=== PATIENT | male | born 1975 | race Caucasian/White ===

== ENCOUNTER 2024-05-29 13:31 | Emergency (ER) | payer OTHER, SELFPAY ==
--- OUTSIDE RECORDS SUMMARY | 2024-05-29 13:33 | XMS_ITS | Clinical Summary ---
Author Organization [facility] tuul Address [facility] [place] [address] Care Team Providers Care Soot Blower Name Role Phone Benito Lainez DO Primary Care Provider [phone] Source Comments [facility] tuul,non-owned Affiliates and Associated Physician Practices is amultiple site organization consisting of ambulatory clinics and hospital sitesin [place], [place], [place] and [place]. This disclosure is being madepursuant to the Care Everywhere program and may not contain all information available regarding this patient. Last updated 17.[facility] tuul Allergies No known active allergies Medications * Be aware that medications may not be up to date on this document. Alwaysverify current medications with the patient. Medication Sig Dispensed Refills Start Date End Date Status atorvastatin (LIPITOR) 10 MG tablet Take 1 tablet by mouth at bedtime 04/23/2018 Active buPROPion XL 24hr (WELLBUTRIN-XL) 300 MG tablet 03/15/2018 Active gabapentin (NEURONTIN) 100 MG capsule 05/19/2018 Active HYDROcodone-acetamin ophen (NORCO) 5-325 MG tablet hydrocodone 5 mg-acetaminophen 325 mg tablet Active hydrOXYzine pamoate (VISTARIL) 50 MG capsule 05/24/2018 Active levothyroxine (SYNTHROID) 200 MCG tablet 05/19/2018 Active methylPREDNISolone (MEDROL DOSEPAK) 4 MG tablet 05/19/2018 Active traMADol (ULTRAM) 50 MG tablet tramadol 50 mg tablet Active Active Problems Problem Noted Date Diagnosed Date Chronic obstructive lung disease 06/09/2018 Creatinine elevation 06/09/2018 Family History Relation Name Status Comments Brother Alive Father Alive Mother Alive Sister Alive Social History Tobacco Use Types Packs/Day Years Used Date Smoking Tobacco: Every Day Cigarettes Smokeless Tobacco: Former Tobacco Cessation:Ready to Q uit: No; Counseling Given: Yes Alcohol Use Standard Drinks/Week Comments Yes 0 (1 standard drink = 0.6 oz pur e alcohol) OCCASIONAL Sex and Gender Information Value Date Recorded Sex Assigned at Not on file Gender Identity Not on file Sexual Orientation Not on file Last Filed Vital Signs Vital Sign Reading Time Taken Comments Blood Pressure 141/99 06/09/2018 2:30 PM CDT Pulse 94 06/09/2018 2:30 PM CDT Temperature 36.3 C (97.4 F) 06/09/2018 2:30 PM CDT Respiratory Rate 20 06/09/2018 2:30 PM CDT Oxygen Saturation 98% 06/09/2018 2:30 PM CDT Inhaled Oxygen Concentration - - Weight 107.3 kg (236 lb 9.6 oz) 06/09/2018 2:30 PM CDT Height 185.4 cm (6' 1 ) 06/09/2018 2:30 PM CDT Body Mass Index 31.22 06/09/2018 2:30 PM CDT Plan of Treatment Health Maintenance Due Date Last Done Comments COLOGUARD (AGES 45-75) - COL ON CA SCREENING 1973 COLON MONITORING 1973 COLONOSCOPY - COLON CA SCREENING 1973 CT COLONOGRAPHY - COLON CA SCREENING 1973 Colorectal Cancer Screening 1973 FIT - COLON CA SCREENING 1973 FLEX SIG - COLON CA SCREENING 1973 HIV SCREENING 1988 HEPATITIS C SCREENING 10/12/1991 DTAP/TDAP/TD VACCINES (1 - Tdap) 1992 HEPATITIS B VACCINE (1 of 3 - 19+ 3-dose series) 1992 PNEUMOCOCCAL VACCINE (1 of 2 - PCV) 1992 SCREENING FOR DIABETES 06/09/2018 PNEUMOCOCCAL VACCINE 50+ (1 of 1 - PCV) 10/17/2023 ZOSTER VACCINE (1 of 2) 10/17/2023 COVID-19 VACCINE (1 - 2023-2 5 season) 2023 INFLUENZA VACCINE (#1) 2023 DEPRESSION SCREENING 03/02/2024 HIB VACCINE Aged Out No longer eligi ble based on patient's age to complete this topic HPV VACCINE Aged Out No longer eligi ble based on patient's age to complete this topic MENINGOCOCCAL (Group B) VACC INE SHARED DECISION-MAKING Aged Out No longer eligibl e based on patient's age to complete this topic MENINGOCOCCAL GROUPS A/C/Y/W VACCINE Aged Out No longer eligible b ased on patient's age to complete this topic Care Teams Soot Blower Relationship Specialty Start Date End Date Benito Lainez DO [address] [facility] [place] [address] PCP - General Family Medicine 05/12/18
--- OUTSIDE RECORDS SUMMARY | 2024-05-29 13:33 | XMS_ITS | Data Portability ---
[facility] Organization [facility] Address [address] [place] [address] Care Team Providers Care Community Health Advocate Name Role Phone BJORN WATT Primary Care Provider [phone] Assessment No assessment recorded. Plan of Treatment Reminders Order Date Submit Date Provider Last Modified By Organization Details Last Modified Time Details Appointments None recorded. Lab CBC 2014 015 [email or web address] [facility], [address] [facility], [facility] [address], [place], [address], 5 13:26:16 CMP, serum or plasma 2014 015 [email or web address] [facility], [address], [address], [place], [address], 5 11:46:39 Referral physical therapist referral 2023 024 [facility], [address] [facility], [place], [address], 4 15:26:10 behaviora health referral 2016 017 [email or web address] Yves Sandy MD, [address] [place], [address], 7 08:51:36 urologist referral 2014 015 ATHENAFAX Not available 5 10:44:59 Procedures None recorded. Surgeries None recorded. Imaging ultrasoun d, kidney 2014 015 [email or web address] [facility] ([facility]), [address] [place], [address], 5 14:40:30 juliana leung kevinshanice er 2014 015 [facility] ([facility]), [address] [place], [address], 5 14:37:19 Medication Orders diclofena c sodium 75 mg tablet,de layed release 2023 [facility], [address] [place] [address] , [address], [place], [place], [id number], 4 14:46:55 Medrol (Mac) 4 mg tablets in a dose pack 2023 024 [facility], [address] [place] [address] , [address], [place], [place], [id number], 4 14:46:54 Robaxin 500 mg tablet 2015 016 [facility], [address] [place] [address], [place], [address], 6 16:19:30 Patient TargetsNo targets recorded. Patient Instructions Encounter Date Encounter Id Patient Instructions Last Modified By Organization Details Last Modified Time 12/14/2014 [id number] deciding about using medicines to quit smoking dskaer Not available 12/14/2014 13:26:34 Quitting Tobacco : Care Instructions dskaer Not available 12/14/2014 13:26:34 blood in the urine: care instructions dskaer Not available 12/14/2014 13:26:34 cystoscopy: before your procedure dskaer Not available 12/14/2014 13:26:34 Go to ER for any concern other canales set up appointment for F/u with this office after the above tests completed, the patient is so instructed, he understood and agreed. [email or web address] Not available 12/14/2014 12:10:42 07/05/2015 [id number] deciding about using medicines to quit smoking strice Not available 07/05/2015 16:39:45 Quitting Tobacco : Care Instructions strice Not available 07/05/2015 16:39:45 back care and preventing injuries: care instructions strice Not available 07/05/2015 16:39:45 Reason for Referral Urologist Referral for Hemat uria syndrome Referring Physician: Bjorn Watt, Internal Medicine, Encounter Date: 12/14/2014 Behavioral Health Referral f or Moderate mood disorder Mood disorder Referring Physician: Joseph Ugarte, Internal Medicine, Encounter Date: 03/19/2016 Physical Therapist Referral for Lateral epicondylitis of left humerus Referring Physician: Shade Lam, Orthopedic Surgery, Encounter Date: 06/01/2023 Results Created Date Observation Date Name Description Value Unit Range Abnormal Flag Note LastModifiedBy Organization Detail LastModifiedTime 12/15/19 15 12/15/2014 PSA, serum or plasm a prostate specific Ag, serum 0.3 NG/mL 0.0-4. 0 LEE ECLIA METHO DOLOG Y. ACCOR DING TO THE [facility] N, SERUM PSA SHOUL D DECRE ASE AND REMAI N AT UNDET ECTAB LE LEVEL S AFTER RADIC AL PROST ATECT ABIMBOLA. THE AUA DEFIN ES BIOCH EMICA L RECUR RENCE AN INITI AL PSA VALUE 0.2 NG/ML OR GREAT ER FOLLO WED BY A SUBSE QUENT CONFI RMATO RY PSA VALUE 0.2 NG/ML OR GREAT ER. VALUE S OBTAI LOGAN WITH DIFFE RENT ASSAY METHO DS OR KITS CANNO T BE USED INTER PHELPS EABLY . RESUL TS CANNO T BE INTER PRETE D ABSOL HAVASUPAI EVIDE NCE OF THE PRESE NCE OR ABSEN CE OF KIM ROCHE SE. Not Available [facility] ([facility]) [address] [facility], [place], [address], 12/15/2014 11:21:22 12/15/1912/15/2014 cultu re, urine urine culture, routine FINAL REPORT Not Available [facility] ([facility]) [address] [facility] [facility], [place], [address], 12/17/2014 19:48:44 12/15/19 15 12/15/2014 cultu re, urine result 1 NO GROWTH Not Available [facility] ([facility]) [address] [facility], [place], [address], 12/17/2014 19:48:44 12/21/19 15 12/20/2014 ultra sound , gallb ladde r No observ ation record ed. [facility] (Imaging) [address] [place], [address], 07/05/2015 16:16:11 02/21/20 15 02/20/2015 imagi ng/di agnos tic resul t No observ ation record ed. [facility] (Imaging) [address] [place], [address], 07/05/2015 16:16:11 07/03/19 16 07/03/2015 ultra sound , gallb ladde r No observ ation record ed. [facility] (Imaging) [address] [place], [address], 07/05/2015 16:16:11 09/11/19 16 09/11/2015 MRI, abdom en, w/ contr ast No observ ation record ed. [email or web address] (Imaging) [address] [place], [address], 10/05/2015 11:42:35 06/01/19 24 06/01/2023 XR, elbow , 2 view No observ ation record ed. [facility] Him Department [address] [place], [address], 06/04/2023 12:02:33 Result Notes None recorded. Problems Name Problem SNOMED Code Status Onset Date Resolution Date Notes Provider Name and Address Organization Details Recorded Time Chronic otitis media 82256523 Active Bjorn Watt MD Attn: Gracy g,[address] [facility], [place], [place], [address] [place] [address] 2, [place] - [facility] 5 11:14:52 Chronic obstructive pulmonary disease 97409768 Active Bjorn Watt MD Attn: Accountin g,[address] [facility], [place], [address] [place] [address] 2, [place] [facility] 6 16:19:23 Tobacco dependence syndrome 22102781 Active Bjorn Watt MD Attn: Accountin g,[address] [facility], [place], [address] [place] [address] 2, [place] [facility] 6 16:19:23 Hemorrhoids 15711539 Active Bjorn Watt MD Attn: Accountin g,[address] [facility], [place], [address] [place] [address] 2, [place] [facility] 5 11:14:52 Acute left otitis media 165759685 Active Bjorn Watt MD Attn: Accountin g,[address] [facility], [place], [address] [place] [address] 2, [place] [facility] 4 17:37:18 Hyperkeratotic callus Active Bjorn Watt MD Attn: Accountin g,[address] [facility], [place], [address] [place] [address] 2, [place] [facility] 4 17:37:18 Right upper quadrant pain 776892741 Active Bjorn Watt MD Attn: Accountin g,[address] [facility], [place], [address] [place] [address] 2, [place] [facility] 6 16:19:23 Hematuria syndrome 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, [place], [address], [facility] - [facility] 6 16:19:23 Moderate mood disorder 8104002 Active 2016 Joseph Ugarte MD Attn: Gracy recinos,[address] [facility], [place], [address], [facility] - [facility] 7 13:08:57 History of migraine 061120610 Active 2016 Joseph Ugarte MD Attn: Gracy recinos,[address] [facility], [place], [address], [facility] - SI 7 13:11:11 Problem Notes None recorded. Procedures Surgical History None recorded. Imaging Results Imaging Date Name Status LastModified by Organiz [facility] Details LastModified Time 12/20/2014 ultrasound, gallbladder completed [facility] (Imaging) [address] [place], [address], 07/05/2015 16:16:11 02/20/2015 imaging/diagnos tic result completed [facility] (Imaging) [address] [place], [address], 07/05/2015 16:16:11 07/03/2015 ultrasound, gallbladder completed [facility] (Imaging) [address] [place], [address], 07/05/2015 16:16:11 09/11/2015 MRI, abdomen, w/ contrast completed [address] (Imaging) [address] [place], [address], 10/05/2015 11:42:35 06/01/2023 XR, elbow, 2 view completed [facility] Him Department [address] [place], [address], 06/04/2023 12:02:33 Procedure Notes None recorded. Medical Equipment None Reported. Allergies No known drug allergies Medications Name Sig Start Date Stop Date Status Note LastModified by Organization Details LastModified Time cyclobenzap rine 10 mg tablet active Not Available Not Available Not Available atorvastati n 40 mg tablet active Not Available Not Available Not Available methocarbam ol 500 mg tablet Take 2 tablets 3 times a day by oral route as needed for 30 days. active Not Available Not Available No t Available cefuroxime axetil 250 mg tablet active Not Available Not Available No t Available hydrocodone 5 mg-acetamin ophen 325 mg tablet active Not Available Not Available No t Available clindamycin HCl 150 mg capsule TAKE 2 CAPSULES BY MOUTH EVERY 6 HOURS UNTIL GONE active Not Available Not Available No t Available hydroxyzine pamoate 50 mg capsule active Not Available Not Available N ot Available tramadol 50 mg tablet active Not Available Not Available No t Available oxycodone-a cetaminophe n 5 mg-325 mg tablet active Not Available Not Available No t Available baclofen 10 mg tablet active Not Available Not Available No t Available lidocaine 5 % topical patch active Not Available Not Available Not Available diclofenac sodium 75 mg tablet,jailene yed release Take 1 tablet twice a day by oral route. active Not Available Not Available No t Available levothyroxi ne 200 mcg tablet active Not Available Not Available Not Available gabapentin 100 mg capsule active Not Available Not Available Not Available methylpredn isolone 4 mg tablets in a dose pack Take 1 dose pk by oral route. active Not Available Not Available No t Available Vitamin D2 1,250 mcg (50,000 unit) capsule active Not Available Not Available Not Available fluticasone propionate 50 mcg/actuati on nasal spray,suspe nsion active Not Available Not Available Not Available naproxen 500 mg tablet active Not Available Not Available Not Available amoxicillin 875 mg-potassiu m clavulanate 125 mg tablet Take 1 tablet every 12 hours by oral route with meals for 10 days. 02/11 completed Not Available Not Available Not Available bupropion HCl XL 300 mg 24 hr tablet, extended release active Not Available Not Available Not Available Vitals Date Recorded Body weight Oxygen saturation Oxygen saturation in Arterial blood by Pulse oximetry Body height Body temperature Heart rate Body mass index (BMI) Systolic blood pressure Diastolic blood pressure Provider Name and Address Organization Details Last Updated DateTime 5 364907. 012333 g 97 % 97 % 185.42 cm 98.1 [degF] 62 /min 30.7 kg/m2 130 mm[Hg] 100 mm[Hg] Chato Mott MA [facility] 5 11:22:54 Date Recorded Body weight Body temperature Body mass index (BMI) Body height Provider Name and Address Organization Details Last Updated DateTime 06/01/2023 725666.68 g 98.6 [degF] 30.4 kg/m2 185.42 cm Aristeo Champagne MA [facility] 06/01/2023 14:12:26 Date Recorded Body weight Oxygen saturation Oxygen saturation in Arterial blood by Pulse oximetry Body mass index (BMI) Body temperature Heart rate Body height Systolic blood pressure Diastolic blood pressure Provider Name and Address Organization Details Last Updated DateTime 6 446298. 200464 g 95 % 95 % 30 kg/m2 97.8 [degF] 59 /min 185.42 cm 122 mm[Hg] 90 mm[Hg] Chato Mott MA [facility] 6 16:01:03 Date Recorded Body height Body weight Body mass index (BMI) Body temperature Heart rate Oxygen saturation Oxygen saturation in Arterial blood by Pulse oximetry Systolic blood pressure Diastolic blood pressure Provider Name and Address Organization Details Last Updated DateTime 7 185.42 cm 779710. 72 g 29.7 kg/m2 98.3 [degF] 72 /min 97 % 97 % 120 mm[Hg] 88 mm[Hg] Inessa Andrea MA [facility] 7 11:55:25 Social History Question Answer Notes LastModified by Organizat ion Details LastModified Time Tobacco Smoking Status Current Every Day Smoker Shalomdeysiisela Fantasma [facility], [facility] 02/01/2014 16:58:40 Do You Have An Advance Directive? No Information not available 06/01/2023 What Is Your Level Of Alcohol Consumption? Occasional Information not available 02/01/2014 What Is Your Level Of Caffeine Consumption? Occasional Information not available 02/01/2014 Live Alone Or With Others? With Others Information not available 02/01/2014 Do You Have A Medical Power Of Electrical Technology Instructor? No Information not available 06/01/2023 What Was The Date Of Your Most Recent Tobacco Screening? 06/01/2023 Information not available 06/01/2023 At What Age Did You Start Smoking Tobacco? 12 Information not available 02/01/2014 How Much Tobacco Do You Smoke? 1 PPD Information not available 02/01/2014 Sex: Unknown Functional Status Question Answer Note LastModified by Organization D etails LastModified Time Are you able to care for yourself? Yes Information n ot available 02/01/2014 Mental Status None recorded. Family History Relationship Description Onset Age of this Age Resolved Age Notes LastModified by Organization Details LastModified Time Maternal Grandmother Heart disease dskaer Not available 2014 18:07:23 Paternal Grandmother Heart disease dskaer Not available 2014 18:07:23 Maternal Grandfather Heart disease dskaer Not available 2014 18:07:23 Paternal Grandfather Heart disease dskaer Not available 2014 18:07:23 Medical History Condition Response Coronary Artery Disease N High Blood Pressure N Atrial Fibrillation N Kidney or Bladder Problems N Thyroid Problems N GI Problems N Depression N COPD N Blood Clots N Skin Problems N Anemia N Heart Attack (DC) N Anxiety Disorder N Diabetes N Muscle, Joint, or Bone Problems N Seizures/Epilepsy N Acid Reflux (GERD) Y Cancer N Stroke N Asthma N Allergies N High Cholesterol N Hepatitis N Liver Disease N Headaches Y Heart Failure N Osteoporosis N Past Encounters Encounter ID Performer Location Encounter Start Date Encounter Closed Date Diagnosis/Indication Diagnosis SNOMED-CT Code Diagnosis ICD10 Code Diagnosis Note [id number] YASMIN Brock (Adult Med) [address] [place] [address] 02/01/2014 16:10:22 02/01/2014 17:38:13 Acute left otitis media 848196239 Hyperkeratotic callus 454905060 [id number] Ssuan (Adult Med) [address] [place] [address] 05/12/2014 10:50:46 05/12/2014 12:09:18 Chronic otitis media 49918336 Chronic ob structive pulmonary disease 21732147 Tobacco de pendence syndrome 75924930 Hemorrhoids 54422291 [id number] Kyara Freemaneguera Susan (Adult Med) [address] [place] [phone] 06/28/2014 10:37:32 06/28/2014 13:41:18 Chronic otitis media 26938423 Chronic ob structive pulmonary disease 03053843 Tobacco de pendence syndrome 36984854 Hemorrhoids 57541735 [id number] JOSE Broussard (Adult Med) [address] [place] [address] 12/14/2014 10:26:14 12/14/2014 12:17:33 Right upper quadrant pain 137759057 R10.11 Hematuria syndrome 82156 000 R31.9 R31.2 Polyuric state 87657890 R35.8 Chronic ob structive pulmonary disease 16538267 J44.9 Tobacco de pendence syndrome 79937638 F17.290 [id number] May Wilfredo Davis (Adult Med) [address] [place] [address] 07/05/2015 15:46:25 07/05/2015 17:44:56 Chronic obstructive pulmonary disease 42686429 J44.9 Tobacco de pendence syndrome 42530150 F17.290 Right uppe r quadrant pain 507590544 R10.11 Low back pain 078433660 M54.5 [id number] MD Susan Kolb (Adult Med) [address] [place] [phone] 01/28/2016 14:28:32 05/05/2016 13:07:15 [id number] MD Susan Rich (Adult Med) [address] [place] [phone] 03/19/2016 10:47:14 03/19/2016 15:22:11 Moderate mood disorder 7606071 F39 History of migraine 1614 61141 Z86.69 [id number] Shade Lam [place] [facility] [place] [place] [address] [place] [address] 06/01/2023 13:39:28 06/05/2023 13:46:24 Lateral epicondylitis of left humerus 0734199226 68828 M77.12 Health Concerns Section Related Observation LastModified by Organization Detai ls LastModified Time None Recorded Concern Status LastModified by Organization Details LastModified Time None Recorded Advance Directives Directive N: Payers Encounter Date Sequence Insurance Name Policy Number Policy Dumont Covered Member ID Dumont Member ID Guarantor Name 12/14/2014 1 [facility] (MEDICAID HMO) [id number] Brian Chyna [id number] Brian Chyna 07/05/2015 1 [facility] (MEDICAID HMO) [id number] Brian Chyna [id number] Brian Chyna 01/28/2016 1 [facility] (MEDICAID HMO) [id number] Brian Chyna [id number] Brian Chyna 03/19/2016 1 [facility] (MEDICAID HMO) [id number] Brian Chyna [id number] Brian Chyna 06/01/2023 1 [facility] (MEDICAID HMO) [id number] Brian Chyna [id number] Brian Chyna Notes Date Note Type Note Provider Name and Address Organization Details Recorded Time 12/14/2014 text/html 1. Right upper abdominal pain after eating, off and on for about 2 months. 2. frequent urination and at night as well. Sarah Manjarrez LPN [facility] 01/04/2015 18:07:34 07/05/2015 text/html Saw GI specialis t Dr. Katie Sorto, the U/S and HIDA scan were normal. Also been seen by urologist Dr. Juliana Persaud who referred to GI for further evaluation. Recently has had lower back pain since 2 weeks ago, went ER and was released. Tramadol made him sleepy. Bjorn Watt MD Attn: Accounting,[address] [facility], [place], [address], [facility] 07/05/2015 16:19:25 03/19/2016 text/html Has had difficul ty dealing with normal life situations. Present most of his life but has progressively worsened. Recent cholecystectomy 2015. Jorje Payton MD Attn: Accounting,[address] [facility], [place], [address], [facility] 03/19/2016 13:15:52 06/01/2023 text/html Elbow/ForearmRep orted bypatient.Location:le ft; lateral; deep Quality:aching; throbbing; deep; worsening Severity:moderate Duration:continuous since onset Timing:abrupt; recurrent Context:overuse; atraumatic Alleviating Factors:rest Aggravating Factors:lifting; carrying; pushing/pulling; gripping; grasping Associated Symptoms:no numbness; no tingling; no swelling; no redness; no warmth; no ecchymosis; no catching/locking; no popping/clicking; no grinding; no instability; no drainage; no fever; no chills; no weight loss; no change in bowel/bladder habits;weakness;buckl ing;radiating to dorsal forearm Previous Surgery:none Prior Imaging:none Previous Injections:none Previous PT:none Shade Lam MD [address], [place], [address], [facility] 06/01/2023 14:48:56
--- OUTSIDE RECORDS SUMMARY | 2024-05-29 13:33 | XMS_ITS | Clinical Summary ---
Author Organization [facility] Address [address] [place] [address] Care Team Providers Care Terrazzo Polisher Name Role Phone Unavailable Primary Care Provider Unavailabl e Social History Tobacco Use Types Packs/Day Years Used Date Smoking Tobacco: Never Assessed Sex and Gender Information Value Date Recorded Sex Assigned at Not on file Legal Sex Male 8:03 PM CDT Gender Identity Not on file Sexual Orientation Not on file Plan of Treatment Health Maintenance Due Date Last Done Comments Colorectal Cancer Screening Colonoscopy (10 Years) 1973 Annual Physical 1976 Hepatitis C 10/17/1991 DTaP, Tdap and Td Vaccines ( 1 - Tdap) 1992 Hepatitis B Vaccines (1 of 3 - 19+ 3-dose series) 1992 Zoster Vaccines (1 of 2) 10/17/2023 COVID-19 Vaccine (2023-2 5 season) 2023 Influenza Adult (#1) 2023 Meningococcal B Vaccine Aged Out No l onger eligible based on patient's age to complete this topic Meningococcal Vaccine Aged Out No dinorah ezekiel eligible based on patient's age to complete this topic Pneumococcal Vaccine: Pediat rics (0 to 5 Years) and At-Risk Patients (6 to 64 Years) Aged Out No longer eligible b ased on patient's age to complete this topic RSV Immunizations Under 20 Months Aged Out No longer eligible based on patient's age to complete this topic
--- OUTSIDE RECORDS SUMMARY | 2024-05-29 13:33 | XMS_ITS | Clinical Summary ---
Author Organization [facility] [address] Address [address] [place] [address] Phone Care Team Providers Care Er Physician Name Role Phone James Guerin NP Primary Care Provider Allergies No known active allergies Medications No known medications Social History Tobacco Use Types Packs/Day Years Used Date Smoking Tobacco: Every Day Personal Safety Answer Date Recorded Getting School Help Needed Not on file 05/16 Sex and Gender Information Value Date Recorded Sex Assigned at Not on file Legal Sex Male 1:40 PM CDT Gender Identity Not on file Sexual Orientation Not on file Obstetrics History Last Filed Vital Signs Vital Sign Reading Time Taken Comments Blood Pressure - - Pulse - - Temperature - - Respiratory Rate - - Oxygen Saturation - - Inhaled Oxygen Concentration - - Weight 105.7 kg (233 lb) 12/30/2017 10:05 AM CDT Height - - Body Mass Index - - Plan of Treatment Not on file Insurance [facility] Member Subscriber Plan / Payer (Ef fective 2014-Present) Name:Brian Clemente Relation to Subscriber:Self Name:Brian Clemente Payer ID:[id number] (NAIC) Group ID:Not on file Type:MEDICAID RISK OTHER Address: [place] [id number] Care Teams Er Physician Relationship Specialty Start Date End Date James Guerin NP [address] [facility] [place] [address] PCP - General Nurse Practitioner 12/23/17
--- OUTSIDE RECORDS SUMMARY | 2024-05-29 13:33 | XMS_ITS | Referral Summary ---
Author Organization [facility] [address] Address [address] [place] [address] Phone Care Team Providers Care Business Support Assistant Name Role Phone James Guerin NP Primary [...] Plan of Treatment Not on file Insurance [facility] Care Teams Business Support Assistant Relationship Specialty Start Date End Date James Guerin NP [address] [place] [address] PCP - General Nurse Practitioner 12/23/17
[2024-05-29 13:58] VITALS: BP 148/75; PULSE 72; RESP 20; TEMP 36.6; O2SAT 100
--- OUTSIDE RECORDS SUMMARY | 2024-05-29 14:57 | XMS_ITS | Referral Summary ---
Author Organization [facility] [address] Address [address] [place] [address] Phone Care Team Providers Care Cobol Mainframe Developer Name Role Phone James Guerin NP Primary [...] Plan of Treatment Not on file Insurance [facility] Care Teams Cobol Mainframe Developer Relationship Specialty Start Date End Date James Guerin NP [address] [place] [address] PCP - General Nurse Practitioner 12/23/17
--- OUTSIDE RECORDS SUMMARY | 2024-05-29 14:57 | XMS_ITS | Clinical Summary ---
Author Organization [facility] [address] Address [address] [place] [address] Phone Care Team Providers Care Skin Tanner Name Role Phone James Guerin NP Primary [...] Plan of Treatment Not on file Insurance [facility] Member Subscriber Plan / Payer (Ef fective 2014-Present) Name:Brian Clemente Relation to Subscriber:Self Name:Brian Clemente Payer ID:[id number] (NAIC) Group ID:Not on file Type:MEDICAID RISK OTHER Address: [place] [id number] Care Teams Skin Tanner Relationship Specialty Start Date End Date James Guerin NP [address] [facility] [place] [address] PCP - General Nurse Practitioner 12/23/17
--- OUTSIDE RECORDS SUMMARY | 2024-05-29 14:57 | XMS_ITS | Clinical Summary ---
Author Organization [facility] Address [address] [place] [address] Care Team Providers Care Safety Person Name Role Phone Unavailable Primary Care Provider [...]
--- OUTSIDE RECORDS SUMMARY | 2024-05-29 14:57 | XMS_ITS | Clinical Summary ---
Author Organization [facility] Address [facility] [place] [address] Care Team Providers Care Radio Artist Name Role Phone Benito Lainez DO Primary Care Provider [phone] Source Comments [facility],non-owned Affiliates and Associated Physician Practices is amultiple site organization consisting of ambulatory clinics and hospital sitesin [place], [place], [place] and [place]. This disclosure is being madepursuant to the Care Everywhere program and may not contain all information available regarding this patient. Last updated 17.[facility] Allergies No known active allergies Medications * [...] age to complete this topic Care Teams Radio Artist Relationship Specialty Start Date End Date Benito Lainez DO [address] [facility] [place] [address] PCP - General Family Medicine 05/12/18
--- NOTE | 2024-05-29 15:54 | ED_ITS ---
HPI - Skin/Abscess/Foreign Bdy General Chief complaint: Skin/Abscess/Foreign Body Stated complaint: Multiple lumps under left arm Time Seen by Provider: 05/29/24 14:49 Source: patient Mode of arrival: ambulatory Limitations: no limitations History of Present Illness HPI narrative: Patient is a 48 y/o male who presents to the ED with c/o abscesses to left axillary region. Patient reports he 1st noticed a an abscessed region in his left axilla around 2 weeks ago. He states his mother drained the region he has since developed numerous other lesions in his left axillary region. C/o pain in this region. Some lesions have been draining. Reported having a fever of 102F last night. Denies N/V, hx of DM. Related Data Allergies Allergy/AdvReac Type Severity Reaction Status Date / Time No Known Allergies Allergy Verified 05/29/24 13:32 Review of Systems 2 Review of Systems: All systems reviewed & are unremarkable except as noted in HPI. All systems reviewed & are unremarkable except as noted in HPI and below Exam 2 Narrative: GENERAL: Well appearing, well-nourished, non-toxic, in no acute distress. HEAD: Normocephalic, atraumatic. RESPIRATORY: Airway patent, respirations nonlabored. Clear to auscultation bilaterally, no rales, rhonchi, wheezing. CARDIOVASCULAR: Regular rate and rhythm without murmurs, rubs, or gallops. MUSCULOSKELETAL: Moves all extremities. No gross deformities. SKIN: Warm, dry, normal color. Numerous approx 15 small areas of induration and focal abscess formation to L axillary region, pustular formation with scattered lesions spontaneously draining. Mild surrounding erythema. Focal TTP. No streaking or lymphangitis. NEURO: A&O X3. Speech clear. PSYCHIATRIC: Appropriate mood and affect. Normal interaction. Course Vital Signs Vital signs: Vital Signs Temperature 97.9 F 05/29/24 13:58 Pulse Rate 72 05/29/24 13:58 Respiratory Rate 20 05/29/24 13:58 Blood Pressure 148/75 H 05/29/24 13:58 Pulse Oximetry 100 05/29/24 13:58 Oxygen Delivery Room Air 05/29/24 13:58 Temperature 97.9 F 05/29/24 13:58 Pulse Rate 72 05/29/24 13:58 Respiratory Rate 20 05/29/24 13:58 Blood Pressure 148/75 H 05/29/24 13:58 Pulse Oximetry 100 05/29/24 13:58 Oxygen Delivery Room Air 05/29/24 13:58 MDM - Skin/Abscess/Foreign Bdy MDM Narrative Medical decision making narrative: Patient presented to ED with multiple abscesses to left axillary region. States symptoms have been ongoing over the past 2 weeks. Reported fever yesterday. No hx of DM. Vital signs are stable here. Patient is afebrile. Laboratory studies without leukocytosis. Blood glucose is stable on CMP. Creatinine is elevated to 1.99. No records to compare to. Patient does not know if he has had previous kidney issues. Does not currently follow with a primary care doctor. Wound culture was obtained from triage from a lesion that was actively draining in patient's left axillary region. I discussed further I&D of lesions. Advised that I would numb the lesions to express whatever purulent material present to help with healing/infection. Patient adamantly declined I&D. States he does not feel he would be able to undergo I&D without hurting me. States he does not want to hurt me. I advised patient that I would not risk my safety to perform the procedure and if he did not feel he could control himself, that I would not perform the I&D. Patient declined I&D. Will start patient on antibiotics. Given 1st dose of doxycycline in the ED. Discussed warm compresses. Recommended close follow-up with PCP, general surgery, will also provide Dermatology information. Do not feel these lesions are consistent with HS. Patient does not have any other tunneling or scarring. No history of previous abscesses in right axillary region, groin region. I discussed poor kidney function with patient. He does not want any further workup for this at this time. He wants to be discharged. Recommended close follow-up with PCP. Recommended he stay well hydrated. Discussed strict return precautions. Patient agrees with plan. Discharged in stable condition. Medical Records Attestation: I reviewed the patient's medical records. Lab Data Attestation: I reviewed the patient's lab results. 05/29/24 16:13 05/29/24 16:13 Labs: Lab Results 05/29/24 Range/Units 16:13 WBC 9.8 (4.5-10.0) K/mm3 RBC 3.95 L (4.6-6.20) M/mm3 Hgb 12.1 L (14.0-18.0) g/dL Hct 37.4 L (42.0-52.0) % MCV 94.7 (80-100) fl MCH 30.6 (26-34) pg MCHC 32.4 (32-36) g/dl RDW 15.5 H (11.5-14.5) % Plt Count 306 (150-375) k/mm3 MPV 9.1 (7.4-10.4) fl Immature Gran % (Auto) 0.5 (0-0.5) % Neut % (Auto) 64.9 (45.5-73.1) % Lymph % (Auto) 24.5 (18.3-44.2) % [place] % (Auto) 7.4 (2.6-8.5) % Eos % (Auto) 1.7 (0-4.4) % Baso % (Auto) 1.0 (0.2-1.2) % Lymph # (Auto) 2.39 (0.9-3.2) K/mm3 [place] # (Auto) 0.7 H (0.1-0.6) K/mm3 Eos # (Auto) 0.2 (0-0.3) K/mm3 Baso # (Auto) 0.1 (0.0-0.1) K/mm3 Abs Immat Gran (auto) 0.05 H (0.00-0.031) K/mm3 Absolute Neuts (auto) 6.3 (1.3-6.7) K/mm3 Absolute Nucleated RBC 0.000 (0.0-0.012) K/mm3 Nucleated RBC % 0.0 (0.0-0.2) % Sodium 140 (137-145) mmol/L Potassium 4.3 (3.4-5.0) mmol/L Chloride 100 (98-107) mmol/L Carbon Dioxide 30 (22-30) mmol/L Anion Gap 10 (4-12) mmol/L BUN 27 H (9-20) mg/dL Creatinine 1.99 H (0.7-1.3) mg/dL Estim Creat Clear Calc 43 ml/min Estimated GFR 36 L (59 - ) Glucose 104 (65-110) mg/dL Calcium 10.6 H (8.4-10.2) mg/dL Discharge Plan Discharge Clinical Impression: Cutaneous abscess of left axilla CKD (chronic kidney disease) Qualifiers: Chronic kidney disease stage: unspecified stage Qualified Code(s): N18.9 - Chronic kidney disease, unspecified Patient Disposition: Home, Self-Care Condition: Stable Instructions: Antibiotic Form, Cellulitis (ED), Abscess (ED) Additional Instructions: Take antibiotics as prescribed for abscesses. Recommend frequent warm compresses to armpit region. Avoid touching lesions. Continue Tylenol and ibuprofen as needed for pain and/or fevers. Follow-up closely with primary care doctor and/or General surgery and/or Dermatology for further evaluation and management. Return to the ED if you experience Worsening or severe symptoms, severe pain, persistent fevers, unable to keep down food or drink, or any other symptoms of concern. Your kidney function was slightly decreased today. Stay well hydrated at home. Follow up with primary care for this. Patient Language: Tunisian Prescriptions: New doxycycline monohydrate 100 mg tablet 100 mg PO BID 10 Days Qty: 20 0RF Follow-up/Referrals: Florentino Russell M.D. [Physician] - (DERMATOLOGY) Eamon Tadeo MD [Physician] - (GENERAL SURGERY) PHYSICIAN,FLIGHT TEST ENGINEER [Primary Care Provider] - Edmond Escobar MD [Physician] - (PRIMARY CARE) Time of Disposition: 16:30
[2024-05-29 16:19] LABS: Basophils Absolute Auto 0.1 K/mm3 (0.0-0.1); Eosinophils Absolute Auto 0.2 K/mm3 (0-0.3); Eosinophils Percent Auto 1.7 % (0-4.4); Hematocrit 37.4 % (42.0-52.0); Hemoglobin 12.1 g/dL (14.0-18.0); Immature Granulocyte Absolute 0.05 K/mm3 (0.00-0.031); Immature Granulocyte Percent A 0.5 % (0-0.5); Lymphocytes Absolute Auto 2.39 K/mm3 (0.9-3.2); Lymphocytes Percent Auto 24.5 % (18.3-44.2); Mean Corpuscular HGB Conc 32.4 g/dl (32-36); Mean Corpuscular Hemoglobin 30.6 pg (26-34); Mean Corpuscular Volume 94.7 fl (80-100); Mean Platelet Volume 9.1 fl (7.4-10.4); Monocytes Absolute Auto 0.7 K/mm3 (0.1-0.6); Monocytes Percent Auto 7.4 % (2.6-8.5); Neutrophils Absolute Auto 6.3 K/mm3 (1.3-6.7); Neutrophils Percent Auto 64.9 % (45.5-73.1); Platelet Count Result 306 k/mm3 (150-375); Red Blood Count 3.95 M/mm3 (4.6-6.20); Red Cell Distribution Width 15.5 % (11.5-14.5); White Blood Count 9.8 K/mm3 (4.5-10.0)
[2024-05-29 16:29] LABS: Anion Gap 10 mmol/L (4-12); Blood Urea Nitrogen 27 mg/dL (9-20); Calcium 10.6 mg/dL (8.4-10.2); Carbon Dioxide 30 mmol/L (22-30); Chloride 100 mmol/L (98-107); Estimated CRCL calculation 43 ml/min; Estimated Glomerular Filt Rate 36; Glucose 104 mg/dL (65-110); Potassium 4.3 mmol/L (3.4-5.0); Sodium 140 mmol/L (137-145)
[2024-05-29] MEDS: DOXYCYCLINE HYCLATE 100 MG TABLET PO (16:42)
== END 2024-05-29 16:50 | disposition home or self-care (01) ==
PROVIDERS: Emergency Provider Physician Assistant
DX: L02.412 Cutaneous abscess of left axilla (principal); N18.9 Chronic kidney disease, unspecified
CPT/HCPCS: 36415; 80048; 85025; 87070; 87075; 87181; 87205; 99283; A9270

== ENCOUNTER 2024-09-05 06:11 | Emergency (ER) | payer OTHER, SELFPAY ==
[2024-09-05] VITALS (22 sets, daily range): BP systolic 151–169; BP diastolic 99–115; PULSE 43–85; RESP 11–20; TEMP 36.4; O2SAT 93–100
--- NOTE | ~2024-09-05 | XR_ITS ---
Left ankle Technique: AP and lateral views were obtained. Clinical History: Injury Findings: No acute fracture or dislocation is seen. Osseous alignment is anatomic. Ankle mortise and other visualized joint spaces are preserved. Lateral soft tissue swelling noted. Impression: No fracture or dislocation. Lateral soft tissue swelling. Reviewed, dictated and finalized at [facility]. Impression: No fracture or dislocation. Lateral soft tissue swelling.
--- NOTE | ~2024-09-05 | CT_ITS ---
EXAMINATION: CT cervical spine wo con DATE: 09/05/2024 07:28 INDICATION: Neck pain after fall. EtOH use. TECHNIQUE: Computed tomography (CT) of the cervical spine was performed without intravenous contrast. The dose-length product was 548 mGy-cm. Automated exposure control and iterative reconstruction tech nique were employed. COMPARISON: None FINDINGS: There is reversal of cervical lordosis. There is degenerative retrolisthesis at C4-5. There are prominent dorsal osteophytes at C3-4, C4-5 and C5-6. There is levocurvature of the cervical spin e. There is multilevel uncinate hypertrophy. Odontoid process is normal. Lateral masses normally alig jose m. There is multilevel uncinate hypertrophy. There is emphysema of the lung apices. No acute fractu re or traumatic malalignment. Craniovertebral junction within normal limits. No evidence for perched facet. Spinous processes are within normal limits. No significant paraspinal soft tissue abnormality. IMPRESSION: 1. Severe cervical spondylosis. 2: No acute fracture identified. Reviewed, dictated and finalized at location A.
--- NOTE | ~2024-09-05 | CT_ITS ---
Non-contrast Head CT History: Status post fall Technique: Axial non-contrast imaging of the brain was performed. Dose reduction technique was used on this scan by utilizing automated exposure control and iterative reconstruction technique. The dose -length product (DLP) was 681.00 mGy-cm. Findings: There is no evidence of intracranial hemorrhage, mass lesion, or acute infarct. Brain par enchyma appears normal. The ventricles and subarachnoid spaces are normal in size. The calvarium ap pears normal. The visualized paranasal sinuses and mastoid air cells are clear. Impression: No significant abnormality seen. Reviewed, dictated and finalized at location . Impression: No significant abnormality seen.
--- NOTE | ~2024-09-05 | CT_ITS ---
Clinical Indication: Status post fall CT Scan of the Chest, Abdomen, and Pelvis without Contrast: Technique: Contiguous sections were acquired throughout the chest, abdomen, and pelvis without IV con trast initiation. Dose reduction technique was used on this scan by utilizing automated exposure cont rol and iterative reconstruction technique. The dose-length product (DLP) was 946.13 mGy-cm. Findings: There is no evidence of any significant mediastinal, hilar or axillary lymphadenopathy. The mediastin al soft tissues appear normal. There is no evidence of pleural or pericardial effusion. 6 mm nodule present in the right middle lobe (axial image 56). Lungs are otherwise clear. No definite rib fracture seen. The liver, spleen, pancreas, adrenals and kidneys are within normal limits. Cholecystectomy clips are present. No evidence of aortic aneurysm. No lymphadenopathy. No bowel obstruction or bowel wall thickening. There is no evidence to suggest acute appendicitis. Urinary bladder is unremarkable. No pelvic mass seen. No ascites. Impression: No acute abnormality. 6 mm right middle lobe pulmonary nodule. According to Fleischner Society criteria, for a low-risk pat ient, follow-up CT scan in 6-12 months recommended, then consider additional 18-[address] For a hi gh-risk patient, follow-up CT scans at both 6-12 months and 18-24 months are recommended. Reviewed, dictated and finalized at [facility]. Impression: No acute abnormality. 6 mm right middle lobe pulmonary nodule. According to Fleischner Society criter ia, for a low-risk patient, follow-up CT scan in 6-12 months recommended, then consider additional 18-[address] For a high-risk patient, follow-up CT scans at both 6-12 months and 18-24 months are recommended.
--- NOTE | ~2024-09-05 | XR_ITS ---
Left Knee Technique: AP, lateral, and oblique views were obtained. Clinical History: Injury Findings: No fracture or dislocation is seen. Osseous alignment is anatomic. Joint spaces are preserv ed without degenerative or erosive change. Soft tissues are unremarkable. No joint effusion is seen. Impression: Unremarkable left knee radiographs. Reviewed, dictated and finalized at [facility]. Impression: Unremarkable left knee radiographs.
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
[2024-09-05 06:28] LABS: Hematocrit 38.5 % (42.0-52.0); Hemoglobin 12.2 g/dL (14.0-18.0); Immature Granulocyte Percent A 0.6 % (0-0.5); Lymphocytes Absolute Auto 1.82 K/mm3 (0.9-3.2); Mean Corpuscular HGB Conc 31.7 g/dl (32-36); Mean Corpuscular Hemoglobin 30.3 pg (26-34); Mean Corpuscular Volume 95.8 fl (80-100); Nucleated Red Blood Cells Absolute Auto 0.000 K/mm3 (0.0-0.012); Nucleated Red Blood Cells Perc 0.0 % (0.0-0.2); Platelet Count Result 284 k/mm3 (150-375); Red Blood Count 4.02 M/mm3 (4.6-6.20); White Blood Count 10.7 K/mm3 (4.5-10.0)
[2024-09-05] MEDS: TETANUS,DIPHTHERIA,AC PERTUSSIS ADULT (0.5 ML) BOOSTRIX IM (06:31)
[2024-09-05 06:39] LABS: Alanine Aminotransferase 103 U/L (6-50); Albumin Level 4.8 g/dL (3.5-5.1); Alkaline Phosphatase 42 U/L (38-126); Anion Gap 7 mmol/L (4-12); Aspartate Amino Transferase 98 U/L (17-59); Bilirubin,Total 0.5 mg/dL (0.2-1.3); Blood Urea Nitrogen 39 mg/dL (9-20); Calcium 11.1 mg/dL (8.4-10.2); Carbon Dioxide 30 mmol/L (22-30); Chloride 104 mmol/L (98-107); Estimated CRCL calculation 46 ml/min; Estimated Glomerular Filt Rate 39; Glucose 109 mg/dL (65-110); Potassium 4.6 mmol/L (3.4-5.0); Sodium 141 mmol/L (137-145); Total Protein 8.6 g/dL (6.3-8.2)
--- OUTSIDE RECORDS SUMMARY | 2024-09-05 06:40 | XMS_ITS | Data Portability ---
Author Organization [facility] Address [address] [place] [address] Care Team Providers Care Director [employer] Name Role Phone BJORN WATT Primary Care Provider [phone] Assessment No assessment recorded. Plan of Treatment Reminders Order Date Submit Date Provider Last Modified By Organization Details Last Modified Time Details Appointments None recorded. Lab CBC 2014 015 [email or web address] [facility], [address] [place] [address], [place] [address], [place], [address], 5 13:26:16 CMP, serum or plasma 2014 015 [email or web address] [facility], [address] [place] [address], [address], [place], [address], 5 11:46:39 Referral physical therapist referral 2023 024 [facility], [address] [facility], [place], [address], 4 15:26:10 [facility] referral 2016 017 [email or web address] Yves Sandy MD, [address] [place], [address], 7 08:51:36 urologist referral 2014 015 [email or web address] Not available 5 10:44:59 Procedures None recorded. Surgeries None recorded. Imaging ultrasoun d, kidney 2014 015 [email or web address] [facility] ([facility]), [address] [place], [address], 5 14:40:30 [email or web address] roth er 2014 015 [facility] ([facility] Sched[facility]), [address] [place], [address], 5 14:37:19 Medication Orders diclofena c sodium 75 mg tablet,de layed release 2023 024 [facility], [address] [place] [address] , [address], [place], [place], [id number], 4 14:46:55 Medrol (Mac) 4 mg tablets in a dose pack 2023 024 [facility], [address] [place] [address] , [address], [place], [place], [id number], 4 14:46:54 Robaxin 500 mg tablet 2015 016 [facility], [address] [place] [address], [address], 6 16:19:30 Patient TargetsNo targets recorded. Patient Instructions Encounter Date Encounter Id Patient Instructions Last Modified By Organization Details Last Modified Time 12/14/2014 [id number] deciding about using medicines to quit smoking [...] is so instructed, he understood and agreed. [email or web address] Not available 12/14/2014 12:10:42 07/05/2015 [id number] deciding about using medicines to quit smoking [...] CANNO T BE INTER PRETE D ABSOL AMY EVIDE NCE OF THE PRESE NCE OR ABSEN CE OF KIM ROCHE SE. Not Available [facility] ([facility]) [address] [facility], [place], [address], 12/15/2014 11:21:22 12/15/1912/15/2014 cultu re, urine urine culture, routine FINAL REPORT Not Available [facility] ([facility]) [address] [facility], [place], [address], 12/17/2014 19:48:44 12/15/19 15 12/15/2014 cultu re, urine result 1 NO GROWTH Not Available [facility] ([facility]) [address] [facility], [place], [address], 12/17/2014 19:48:44 12/21/19 15 12/20/2014 ultra sound , gallb ladde r No observ ation record ed. [facility] (Imaging) [address] [place], [address], 07/05/2015 16:16:11 02/21/20 15 02/20/2015 imagi ng/di agnos tic resul t No observ ation record ed. [facility] (Imaging) [address] [place], [address], 07/05/2015 16:16:11 07/03/19 16 07/03/2015 ultra sound , gallb ladde r No observ ation record ed. [facility] (Imaging) [address] [place], [address], 07/05/2015 16:16:11 09/11/19 16 09/11/2015 MRI, abdom en, w/ contr ast No observ ation record ed. [email or web address] [place] [address] (Imaging) [address] [place], [address], 10/05/2015 11:42:35 06/01/19 24 06/01/2023 XR, elbow , 2 view No observ ation record ed. [facility] Him Department [address] [place], [address], 06/04/2023 12:02:33 Result Notes None recorded. Problems Name Problem SNOMED Code Status Onset Date Resolution Date Notes Provider Name and Address Organization Details Recorded Time Chronic otitis media 55616158 Active Bjorn Watt MD Attn: Gracy g,[address] [facility], [place], [address], [place] [facility] 5 11:14:52 Chronic obstructive pulmonary disease 94495718 Active Bjorn Watt MD Attn: Accountvinny g,[address] [facility], [place], [address], [place] [facility] 6 16:19:23 Tobacco dependence syndrome 43315044 Active Bjorn Watt MD Attn: Accountin g,[address] [facility], [place], [address], [place] [facility] 6 16:19:23 Hemorrhoids 01476300 Active Bjorn Watt MD Attn: Accountin g,[address] [facility], [place], [address], [place] [facility] 5 11:14:52 Acute left otitis media 550685736 Active Bjorn Watt MD Attn: Accountin g,[address] [facility], [place], [address], [place] [facility] 4 17:37:18 Hyperkeratotic callus Active Bjorn Watt MD Attn: Accountin g,[address] [facility], [place], [address], [place] [facility] 4 17:37:18 Right upper quadrant pain 726621602 Active Bjorn Watt MD Attn: Accountin g,[address] [facility], [place], [address], [place] [facility] 6 16:19:23 Hematuria syndrome 84124256 Active Bjorn Watt MD Attn: Accountin g,[address] [facility], [place], [address], [place] [facility] 5 14:41:34 Polyuric state 92227712 Active Bjorn Watt MD Attn: Accountin g,[address] [facility], [place], [address], [place] [facility] 5 12:10:41 Abdominal pain 96049347 Active Erica House LPN null, [place] - [facility] 6 15:53:14 Low back pain 170819376 Active Bjorn Watt MD Attn: Gracy recinos,[address] [facility], [place], [address], [facility] 6 16:19:23 Moderate mood disorder 0963550 Active 2016 Joseph Ugarte MD Attn: Gracy recinos,[address] [facility], [place], [address], [facility] - [facility] 7 13:08:57 History of migraine 925134406 Active 2016 Joseph Ugarte MD Attn: Gracy recinos,[address] [facility], [place], [address], [facility] 7 13:11:11 Problem Notes None recorded. Medical Equipment None Reported. [...] Available Not Available Vitals Date Recorded Body height Body weight Body mass index (BMI) Body temperature Heart rate Oxygen saturation Oxygen saturation in Arterial blood by Pulse oximetry Systolic And Diastolic Provider Name and Address Organization Details Last Updated DateTime 7 185.42 cm 959626. 72 g 29.7 kg/m2 98.3 [degF] 72 /min 97 % 97 % 120/88 mm[Hg] Inessa Andrea MA [facility] 7 11:55:25 Date Recorded Body weight Body temperature Body mass index (BMI) Body height Provider Name and Address Organization Details Last Updated DateTime 06/01/2023 499696.68 g 98.6 [degF] 30.4 kg/m2 185.42 cm Aristeo Champagne MA [facility] 06/01/2023 14:12:26 Date Recorded Body weight Oxygen saturation Oxygen saturation in Arterial blood by Pulse oximetry Body mass index (BMI) Body temperature Heart rate Body height Systolic And Diastolic Provider Name and Address Organization Details Last Updated DateTime 6 511394. 783573 g 95 % 95 % 30 kg/m2 97.8 [degF] 59 /min 185.42 cm 122/90 mm[Hg] Chato Mott MA [facility] 6 16:01:03 Date Recorded Body weight Oxygen saturation Oxygen saturation in Arterial blood by Pulse oximetry Body height Body temperature Heart rate Body mass index (BMI) Systolic And Diastolic Provider Name and Address Organization Details Last Updated DateTime 5 876760. 046726 g 97 % 97 % 185.42 cm 98.1 [degF] 62 /min 30.7 kg/m2 130/100 mm[Hg] Chato Mott MA [facility] 5 11:22:54 Social History Question Answer Notes LastModified by Organizat ion Details LastModified Time Tobacco Smoking Status Current Every Day Smoker Clement velásquez, [place] - [facility] 02/01/2014 16:58:40 Do You Have An Advance Directive? No Information not available 06/01/2023 What Is Your Level Of Caffeine Consumption? Occasional Information not available 02/01/2014 Live Alone Or With Others? With Others Information not available 02/01/2014 Do You Have A Medical Power Of Radiologic Tech? No Information not available 06/01/2023 What Was The Date Of Your Most Recent Tobacco Screening? 06/01/2023 Information not available 06/01/2023 At What Age Did You Start Smoking Tobacco? 12 Information not available 02/01/2014 How Much Tobacco Do You Smoke? 1 PPD Information not available 02/01/2014 Sex: Unknown Functional Status Question Answer Note LastModified by Organizat ion Details LastModified Time What is your level of alcohol consumption? Occasional Information not available 02/01/2014 Are you able to care for yourself? Yes Information not available 02/01/2014 Mental Status None recorded. Family [...] Skin Problems N Anemia N Heart Attack (HI) N Anxiety Disorder N Diabetes N Muscle, Joint, or Bone Problems N Seizures/Epilepsy N Acid Reflux (GERD) Y Cancer N Stroke N Asthma N Allergies N High Cholesterol N Hepatitis N Liver Disease N Headaches Y Heart Failure N Osteoporosis N Past Encounters Encounter ID Performer Location Encounter Start Date Encounter Closed Date Diagnosis/Indication Diagnosis SNOMED-CT Code Diagnosis ICD10 Code Diagnosis Note [id number] MD Susan Kolb (Adult Med) [address] [place] [address] 02/01/2014 16:10:22 02/01/2014 17:38:13 Acute left otitis media 069175913 Hyperkeratotic callus 671321225 [id number] MD Susan Kolb (Adult Med) [address] [place] [address] 05/12/2014 10:50:46 05/12/2014 12:09:18 Chronic otitis media 82027837 Chronic ob structive pulmonary disease 47188099 Tobacco de pendence syndrome 31731427 Hemorrhoids 33141554 [id number] MD Susan Kolb (Adult Med) [address] [place] [address] 06/28/2014 10:37:32 06/28/2014 13:41:18 Chronic otitis media 68610620 Chronic ob structive pulmonary disease 45829185 Tobacco de pendence syndrome 00281975 Hemorrhoids 36365122 [id number] [facility] [address] [place] [address] 12/14/2014 10:26:14 12/14/2014 12:17:33 Right upper quadrant pain 366989357 R10.11 Hematuria syndrome 19028 000 R31.9 R31.2 Polyuric state 06454575 R35.8 Chronic ob structive pulmonary disease 98654813 J44.9 Tobacco de pendence syndrome 50260405 F17.290 [id number] MD Susan Kolb (Adult Med) [address] [place] [address] 07/05/2015 15:46:25 07/05/2015 17:44:56 Chronic obstructive pulmonary disease 10376473 J44.9 Tobacco de pendence syndrome 21392156 F17.290 Right uppe r quadrant pain 428138435 R10.11 Low back pain 332686722 M54.5 [id number] MD Susan Kolb (Adult Med) [address] [place] [address] 01/28/2016 14:28:32 05/05/2016 13:07:15 [id number] MD Susan Rich (Adult Med) [address] [place] [address] 03/19/2016 10:47:14 03/19/2016 15:22:11 Moderate mood disorder 2992263 F39 History of migraine 1614 73132 Z86.69 [id number] Shade Lam MD [facility] [address] [place] [address] 06/01/2023 13:39:28 06/05/2023 13:46:24 Lateral epicondylitis of left humerus 6553392510 70981 M77.12 Health Concerns Section Related Observation LastModified by Organization Detai ls LastModified Time None Recorded Concern Status LastModified by Organization Details LastModified Time None Recorded Advance Directives Directive N: Payers Insurance Date Sequence Insurance Name Policy Number Policy Dumont Covered Member ID Dumont Member ID Guarantor Name 03/16/2016 1 [facility] (MEDICAID HMO) [id number] Brian Clemente [id number] Brian Chyna Notes Date Note Type Note Provider Name and Address Organization Details Recorded Time 12/14/2014 text/html 1. Right upper abdominal pain after eating, off and on for about 2 months. 2. frequent urination and at night as well. Sarah Manjarrez LPN [facility], [place] - [facility] 01/04/2015 18:07:34 07/05/2015 text/html Saw GI specialis t Dr. Katie Sorto, the U/S and HIDA scan were normal. Also been seen by urologist Dr. Juliana Persaud who referred to GI for further evaluation. Recently has had lower back pain since 2 weeks ago, went ER and was released. Tramadol made him sleepy. Bjorn Watt MD Attn: Accounting,[address] [facility], [place], [address], [facility] - [facility] 07/05/2015 16:19:25 03/19/2016 text/html Has had difficul ty dealing with normal life situations. Present most of his life but has progressively worsened. Recent cholecystectomy 2016. Jorje Payton MD Attn: Accounting,[address] [place], [address], [facility] 03/19/2016 13:15:52 06/01/2023 text/html Elbow/ForearmRep orted bypatient.Location:le [...] Injections:none Previous PT:none Shade Lam MD [address] [place], [address], [facility] 06/01/2023 14:48:56
--- OUTSIDE RECORDS SUMMARY | 2024-09-05 06:40 | XMS_ITS | Clinical Summary ---
Author Organization [facility] Address [address] [place] [address] Care Team Providers Care Premium Card Cancellation Clerk Name Role Phone Unavailable Primary Care Provider [...] of 3 - 19+ 3-dose series) 1992 Pneumococcal Vaccine: 50+ Ye ars (1 of 1 - PCV) 10/17/2023 Zoster Vaccines (1 of 2) 10/17/2023 COVID-19 Vaccine (2023-2 5 season) 2023 Meningococcal B Vaccine Aged Out No l onger eligible based on patient's age to complete this topic Meningococcal Vaccine Aged Out No dinorah ezekiel eligible based on patient's age to complete this topic RSV Immunizations Under 20 Months Aged Out No longer eligible based on patient's age to complete this topic
--- OUTSIDE RECORDS SUMMARY | 2024-09-05 06:41 | XMS_ITS | Referral Summary ---
Author Organization [facility] [address] Address [address] [place] [address] Phone Care Team Providers Care Aircraft Loadmaster Superintendent Name Role Phone James Guerin NP Primary [...] of Treatment Not on file Insurance [facility] Care Teams Aircraft Loadmaster Superintendent Relationship Specialty Start Date End Date James Guerin NP [address] [place] [address] PCP - General Nurse Practitioner 12/23/17
--- OUTSIDE RECORDS SUMMARY | 2024-09-05 06:41 | XMS_ITS | Clinical Summary ---
Author Organization [facility] [address] Address [address] [place] [address] Phone Care Team Providers Care General Warehouse Associate Name Role Phone James Guerin NP Primary [...] Plan of Treatment Not on file Insurance [facility] Member Subscriber Plan / Payer (Ef fective 2014-Present) Name:Brian Clemente Relation to Subscriber:Self Name:Brian Clemente Payer ID:[id number] (NAIC) Group ID:Not on file Type:MEDICAID RISK OTHER Address: [place] [id number] Care Teams General Warehouse Associate Relationship Specialty Start Date End Date James Guerni NP [address] [facility] [address] PCP - General Nurse Practitioner 12/23/17
--- OUTSIDE RECORDS SUMMARY | 2024-09-05 06:41 | XMS_ITS | Clinical Summary ---
Author Organization [facility] [employer] Address [facility] [facility] [place] [address] Care Team Providers Care Percussion Instrument Repairer Name Role Phone Benito Lainez DO Primary Care Provider [phone] Source Comments [facility] [employer],non-owned Affiliates and Associated Physician Practices is amultiple site organization consisting of ambulatory clinics and hospital sitesin [place], [place], [place] and [place]. This disclosure is being madepursuant to the Care Everywhere program and may not contain all information available regarding this patient. Last updated 17.[facility] [employer] Allergies No known active allergies Medications * Be aware that medications may not be up to date on this document. Alwaysverify current medications with the patient. 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 Care Teams Percussion Instrument Repairer Relationship Specialty Start Date End Date Benito Lainez DO [address] [facility] [place] [address] PCP - General Family Medicine 05/12/18
--- NOTE | 2024-09-05 06:45 | PC.NURSE ---
CK added to labs already downstairs - rene in lab
[2024-09-05] MEDS: LACTATED RINGERS 1,000 ML 999 ML IV CONT (06:49)
[2024-09-05 06:53] LABS: Creatine Kinase 1125 U/L (55-170)
[2024-09-05] MEDS: SODIUM CHLORIDE 0.9% IV 1,000 ML 999 ML IV CONT ×2 (07:34→07:35)
--- NOTE | 2024-09-05 07:35 | PC.NURSE ---
report to selina aguirre
--- NOTE | 2024-09-05 08:02 | PC.NURSE ---
Night RN reported pt refused straight catheterization. Pt sleeping currently, receiving IVF. Urinal at bedside.
--- NOTE | 2024-09-05 08:59 | PC.NURSE ---
Pt given urinal for urine sample. States he is dehydrate and unable to go. Pt educated that he has received 3L of IVF. Pt continues to decline straight catheterization.
[2024-09-05 10:44] LABS: Cannabinoid Screen Urine Positive (Negative)
--- NOTE | 2024-09-05 12:01 | PC.NURSE ---
Attempted to stand pt from bed and ambulate per EDP. Pt scooted to edge of bed, RN assisted pt with shoes, pt refused to stand. made aware. VORB to apply goran wrap to L ankle and train on crutches.
== END 2024-09-05 12:26 | disposition home or self-care (01) ==
PROVIDERS: Emergency Provider Emergency Medicine
DX: S93.402A Sprain of unspecified ligament of left ankle, initial encounter (principal); W19.XXXA Unspecified fall, initial encounter; R91.1 Solitary pulmonary nodule; M47.812 Spondylosis without myelopathy or radiculopathy, cervical region; Z23 Encounter for immunization
CPT/HCPCS: 36415; 70450; 71250; 72125; 73562; 73600; 74176; 80053; 80307; 82077; 82550; 85025; 90471; 90715; 96360; 99284; J7030; J7120